=== PATIENT | female | born 1985 | race Caucasian/White ===

== ENCOUNTER 2017-08-29 23:22 | Inpatient (IN) | payer MEDICAID, OTHER ==
[~2017-08-29] VITALS: Ht 172.7 cm; Wt 75.7 kg
[~2017-08-29 23:22] MED LIST: ASPI81TA81; FERRTAB2 PO; PREN1CAP7 PO
[2017-08-30] VITALS (33 sets, daily range): BP systolic 102–141; BP diastolic 52–84; PULSE 63–99; RESP 14–18; TEMP 98–98.9; O2SAT 100
[2017-08-30] MEDS ORDERED: LACTATED RINGER'S 1000 ML INJ 1,000 ML IV PRN (00:07)
--- NOTE | 2017-08-30 00:07 | PD ---
HPI Chief Complaint 40 weeks and 4 days Uterine contractions. Travel History International Travel<30 Days: No Contact w/Intl Traveler<30Days: No Known Affected Area: No History of Present Illness HPI Pt is a 32 yo at 40 weeks and 4 days. care with [facility]. EDC 08-25-2017. Pt had been scheduled for IOL here 08-31-2017. Pt reports contractions all day, now every 1-2 minutes. No vaginal leaking or vaginal bleeding. Pt is GBS positive. Weeks Gestation: 40 Para: 0 : 2 History Past Medical History Narrative Medical Recurrent miscarriages Obstetric History Obstetric History recurrent miscarriages. 1st trimester #5 Past Surgical History Surgical History: No Previous Surgery Family History Family History: Negative Social History Alcohol Use: No Tobacco Use: Yes (1/2 PPD) Substance Abuse: No Allergies-Medications (Allergen,Severity, Reaction): Coded Allergies: Sulfa (Sulfonamide Antibiotics) (Verified Allergy, Severe, Edema, 08/30/17 ) Home Meds Active Scripts Multi-Vit/Iron-Folic [id number] C (Ferralet) 90-1-0.012-120 mg Tab, 1 CAPLET PO DAILY for 30 Days, #30 CAPLET 3 Refills Prov:Bethany Grande CNM FOOD SERVICE REPRESENTATIVE 06/30/17 W/O Vit A W/ Fe Fumar (Citranatal [place]) 27-1-260 Mg Cap, 1 CAP PO DAILY for Nutritional Supplement, #90 CAP 90 Refills Prov:Carl Arevalo MD 01/12/17 W/O Vit A W/ Fe Carbo Pack (Citranatal 90 Dha Pack) 90-1 & 300 Mg Pack Prov:Carl Arevalo MD 12/29/16 Reported Medications Aspirin (Aspir-81) 81 Mg Tabdr 03/24/17 Review of Systems Except as stated in HPI: all other systems reviewed are Neg Physical Exam Narrative GENERAL: Well-nourished, well-developed patient. SKIN: Warm and dry. HEAD: Normocephalic and atraumatic. EYES: No scleral icterus. No injection or drainage. ENT: No nasal drainage noted. Mucous membranes pink. Airway patent. NECK: Supple, trachea midline. No JVD. CARDIOVASCULAR: Regular rate and rhythm without murmurs, gallops, or rubs. RESPIRATORY: Breath sounds equal bilaterally. No accessory muscle use. BREASTS: Bilateral exam showed no masses , no retractions, no nipple discharge. ABDOMEN/GI: Abdomen soft, non-tender, bowel sounds present, no rebound, no guarding Gravid to [40] weeks size Fundal Height: [38] GENITOURINARY: External Genitalia: intact and normal in appearance BUS glands: [wnl] Cervix: [soft] Dilatation: [4cm] Effacement: [90%] Station: [-1] Presentation: [vertex] Membranes: [intact] Uterine Contractions: [1-2] FHT's: Category: [1] Baseline: [130s] Reactive: [-] Variability: [good] Decels: [none] EXTREMITIES: No cyanosis or edema. BACK: Nontender without obvious deformity. No CVA tenderness. NEUROLOGICAL: Awake and alert. Motor and sensory grossly within normal limits. Five out of 5 muscle strength in all muscle groups. Normal speech. Data Data Vital Signs Reviewed: Yes Group B Strep: Positive MDM Plan 32yo at 40 weeks and 4 days . GBS positive Presents in labor Will start prophylactic antibiotics. Diagnosis Diagnosis: Primary Impression: Postmaturity , 40-42 weeks gestation Additional Impression: Admitted to labor and delivery Moise Hay MD Aug 30, 2017 00:06
[2017-08-30] MEDS ORDERED: MINERAL OIL 10 ML VIAL TOPICAL PRN (00:15)
[2017-08-30] MEDS ORDERED: OXYTOCIN 30 UNITS-500ML PREMIX 500 ML IV ONE (00:15)
[2017-08-30] MEDS ORDERED: CITRIC ACID-SODIUM CITRATE LIQ 30 ML UDC PO SCH (00:15)
[2017-08-30] MEDS ORDERED: LIDOCAINE HCL 1% 50 ML VIAL INFIL PRN (00:15)
[2017-08-30] MEDS ORDERED: PENICILLIN G POTASSIUM INJ 5,000,000 UNITS in SODIUM CHLORIDE 0.9% INJ 100 ML IV ONE (00:15)
[2017-08-30] MEDS ORDERED: SODIUM CHLORID 0.9% 500 ML INJ 500 ML IV PRN (00:15)
[2017-08-30] MEDS ORDERED: LIDOCAINE HCL 1% 50 ML VIAL I-DERMAL PRN (00:15)
[2017-08-30] MEDS: LACTATED RINGER'S 1000 ML INJ 1,000 ML IV SCH ×4 (00:26→12:17)
[2017-08-30] MEDS ORDERED: SODIUM CHLOR 0.9% 1000 ML INJ 1,000 ML IV PRN (01:00)
[2017-08-30 01:19] LABS: AUTOMATED NEUTROPHIL # 11.4 TH/MM3 (1.8-7.7); BASOPHIL % 0.2 % (0.0-2.0); EOSINOPHIL % 0.2 % (0.0-4.0); HEMATOCRIT 37.4 % (35.0-46.0); HEMO FLAGS DIFF FINAL; LYMPH % 9.6 % (9.0-44.0); LYMPHOCYTE # 1.3 TH/MM3 (1.0-4.8); MEAN CELL VOLUME 90.1 FL (80.0-100.0); MEAN CORPUSCULAR HEMOGLOBIN 31.4 PG (27.0-34.0); MEAN CORPUSCULAR HGB CONC 34.9 % (32.0-36.0); MONO % 4.2 % (0.0-8.0); NEUT % 85.8 % (16.0-70.0); PLATELET COUNT 239 TH/MM3 (150-450); RED BLOOD COUNT 4.15 MIL/MM3 (4.00-5.30); RED CELL DISTRIBUTION WIDTH 13.7 % (11.6-17.2); WHITE BLOOD COUNT 13.3 TH/MM3 (4.0-11.0)
[2017-08-30 01:58] LABS: BACTERIA, URINE RARE /hpf; BLOOD, URINE SMALL (NEG); COMMENT (UR) CULT NOT INDICATED; CULTURE IF INDICATED CULT NOT INDICATED; GLUCOSE,URINE NEG (NEG); KETONE, URINE 40 mg/dL (NEG); MUCUS URINE FEW /lpf (OCC); NITRITE,URINE NEG (NEG); PH, URINE 6.5 (5.0-8.5); SQUAMOUS EPITHELIAL CELL URINE 9 /hpf (0-5); URINE COLOR LIGHT-YELLOW (YELLW/STRAW)
--- NOTE | 2017-08-30 03:06 | HHI.HP ---
HPI Chief Complaint 40 weeks and 34 days Contractions 1 day Travel History International Travel<30 Days: No Contact w/Intl Traveler<30Days: No Known Affected Area: No History of Present Illness HPI Pt is a 32 yo at 40 weeks and 4 days. care with [facility]. EDC 08-25-2017. Pt had been scheduled for IOL here 08-31-2017. Pt reports contractions all day, now every 1-2 minutes. No vaginal leaking or vaginal bleeding. Pt is GBS positive. Pt was examined and noted to be 4cm dilated with regular contractions, No vaginal leaking or bleeding. Weeks Gestation: 40 Para: 0 : 6 History Past Medical History Narrative Medical Remote h/o HSV. Never had outbreak and never been on prophylaxis. No genital lesions noted Obstetric History Obstetric History x5 first trimester miscarriages Past Surgical History Surgical History: No Previous Surgery Family History Family History: Negative Social History Alcohol Use: No Tobacco Use: Yes (1/2 PPd smoker) Substance Abuse: No Allergies-Medications (Allergen,Severity, Reaction): Coded Allergies: Sulfa (Sulfonamide Antibiotics) (Verified Allergy, Severe, Edema, 08/30/17 ) Home Meds Active Scripts Multi-Vit/Iron-Folic [id number] C (Ferralet) 90-1-0.012-120 mg Tab, 1 CAPLET PO DAILY for 30 Days, #30 CAPLET 3 Refills Prov:Bethany Grande CNM KILN PULLER 06/30/17 W/O Vit A W/ Fe Fumar (Citranatal [place]) 27-1-260 Mg Cap, 1 CAP PO DAILY for Nutritional Supplement, #90 CAP 90 Refills Prov:Carl Arevalo MD 01/12/17 W/O Vit A W/ Fe Carbo Pack (Citranatal 90 Dha Pack) 90-1 & 300 Mg Pack Prov:Cral Arevalo MD 12/29/16 Reported Medications Aspirin (Aspir-81) 81 Mg Tabdr 03/24/17 Review of Systems Except as stated in HPI: all other systems reviewed are Neg Physical Exam Narrative GENERAL: Well-nourished, well-developed patient. SKIN: Warm and dry. HEAD: Normocephalic and atraumatic. EYES: No scleral icterus. No injection or drainage. ENT: No nasal drainage noted. Mucous membranes pink. Airway patent. NECK: Supple, trachea midline. No JVD. CARDIOVASCULAR: Regular rate and rhythm without murmurs, gallops, or rubs. RESPIRATORY: Breath sounds equal bilaterally. No accessory muscle use. BREASTS: Bilateral exam showed no masses , no retractions, no nipple discharge. ABDOMEN/GI: Abdomen soft, non-tender, bowel sounds present, no rebound, no guarding Gravid to [40] weeks size Fundal Height: [38] GENITOURINARY: External Genitalia: intact and normal in appearance BUS glands: [wnl] Cervix: [soft] Dilatation: [4cm] Effacement: [90%] Station: [-1] Presentation: [-] Membranes: [intact] Uterine Contractions: [1-2 minutes] FHT's: Category: [1] Baseline: [130s] Reactive: [-] Variability: [Y] Decels: [none] EXTREMITIES: No cyanosis or edema. BACK: Nontender without obvious deformity. No CVA tenderness. NEUROLOGICAL: Awake and alert. Motor and sensory grossly within normal limits. Five out of 5 muscle strength in all muscle groups. Normal speech. Caprini VTE Risk Assessment Caprini VTE Risk Assessment: No/Low Risk (score <= 1) Caprini Risk Assessment Model Point Value = 1 Point Value = 2 Point Value = 3 Point Value = 5 Age 41-60 Minor surgery BMI > 25 kg/m2 Swollen legs Varicose veins or History of unexplained or recurrent spontaneous Oral contraceptives or hormone replacement Sepsis (< 1 month) Serious lung disease, including pneumonia (< 1 month) Abnormal pulmonary function Acute myocardial infarction Congestive heart failure (< 1 month) History of inflammatory bowel disease Medical patient at bed rest Age 61-74 Arthroscopic surgery Major open surgery (> 45 min) Laparoscopic surgery (> 45 min) Malignancy Confined to bed (> 72 hours) Immobilizing plaster cast Central venous access Age >= 75 History of VTE Family history of VTE Factor V Leiden Prothrombin [id number] Lupus anticoagulant Anticardiolipin antibodies Elevated serum homocysteine Heparin-induced thrombocytopenia Other congenital or acquired thrombophilia Stroke (< 1 month) Elective arthroplasty Hip, pelvis, or leg fracture Acute spinal cord injury (< 1 month) Prophylaxis Regimen Total Risk Factor Score Risk Level Prophylaxis Regimen 0-1 Low Early ambulation 2 Moderate Order ONE of the following: *Sequential Compression Device (SCD) *Heparin 5000 units SQ BID 3-4 Higher Order ONE of the following medications: *Heparin 5000 units SQ TID *Enoxaparin/Lovenox 40 mg SQ daily (WT < 150 kg, CrCl > 30 mL/min) *Enoxaparin/Lovenox 30 mg SQ daily (WT < 150 kg, CrCl > 10-29 mL/min) *Enoxaparin/Lovenox 30 mg SQ BID (WT < 150 kg, CrCl > 30 mL/min) AND/OR *Sequential Compression Device (SCD) 5 or more Highest Order ONE of the following medications: *Heparin 5000 units SQ TID (Preferred with Epidurals) *Enoxaparin/Lovenox 40 mg SQ daily (WT < 150 kg, CrCl > 30 mL/min) *Enoxaparin/Lovenox 30 mg SQ daily (WT < 150 kg, CrCl > 10-29 mL/min) *Enoxaparin/Lovenox 30 mg SQ BID (WT < 150 kg, CrCl > 30 mL/min) AND *Sequential Compression Device (SCD) Data Data Vital Signs Reviewed: Yes Orders Orders Admit To Inpatient (08/30/17 ) Code Status (08/30/17 00:07) Vital Signs (Adult) .Per protocol (08/30/17 00:07) Activity Oob Ad Giovanna (08/30/17 00:07) Heart (08/30/17 00:07) Amnioinfusion (08/30/17 00:07) Urinary Catheter Management .ONCE (08/30/17 00:07) Diet Liquid (08/30/17 Breakfast) Lactated Ringer's 1000 Ml Inj (Lr 1000 M (08/30/17 00:07) Lactated Ringer's 1000 Ml Inj (Lr 1000 M (08/30/17 00:07) Sodium Chlorid 0.9% 500 Ml Inj (Ns 500 M (08/30/17 00:15) Sodium Chlor 0.9% 1000 Ml Inj (Ns 1000 M (08/30/17 01:00) Lidocaine 1% Inj (50 Ml) (Xylocaine 1% I (08/30/17 00:15) Citric Acid-Sodium Citrate Liq (Bicitra (08/30/17 00:15) Fentanyl Inj (Fentanyl Inj) (08/30/17 00:15) Fentanyl Inj (Fentanyl Inj) (08/30/17 00:15) Penicillin G Potassium Inj (Pfizerpen-G (08/30/17 00:15) Penicillin G Potassium Inj (Pfizerpen-G (08/30/17 04:15) Complete Blood Count With Diff (08/30/17 00:07) Hold Clot (08/30/17 00:07) Abo/Rh Blood Type (08/30/17 00:07) Urinalysis - C+S If Indicated (08/30/17 00:07) Drug Screen, Random Urine (08/30/17 00:07) Resp Oxygen Non Rebreathe Mask (08/30/17 ) ^ Epidural / Intrathecal Infus (08/30/17 00:07) Oxytocin 30 Units-500ml Premix (Pitocin (08/30/17 00:15) Lidocaine 1% Inj (50 Ml) (Xylocaine 1% I (08/30/17 00:15) Light Mineral Oil (Muri-Lube Oil) (08/30/17 00:15) Inpatient Certification (08/30/17 ) Ob (2e) Additional Admit Info (08/30/17 00:10) Group B Strep: Positive Labs Laboratory Tests Test 08/30/17 00:45 08/30/17 01:41 White Blood Count 13.3 Red Blood Count 4.15 Hemoglobin 13.0 Hematocrit 37.4 Mean Corpuscular Volume 90.1 Mean Corpuscular Hemoglobin 31.4 Mean Corpuscular Hemoglobin Concent 34.9 Red Cell Distribution Width 13.7 Platelet Count 239 Mean Platelet Volume 8.4 Neutrophils (%) (Auto) 85.8 Lymphocytes (%) (Auto) 9.6 Monocytes (%) (Auto) 4.2 Eosinophils (%) (Auto) 0.2 Basophils (%) (Auto) 0.2 Neutrophils # (Auto) 11.4 Lymphocytes # (Auto) 1.3 Monocytes # (Auto) 0.6 Eosinophils # (Auto) 0.0 Basophils # (Auto) 0.0 CBC Comment DIFF FINAL Differential Comment Urine Color LIGHT-YELLOW Urine Turbidity HAZY Urine pH 6.5 Urine Specific [place] 1.005 Urine Protein NEG Urine Glucose (UA) NEG Urine Ketones 40 Urine Occult Blood SMALL Urine Nitrite NEG Urine Bilirubin NEG Urine Urobilinogen LESS THAN 2.0 Urine Leukocyte Esterase MOD Urine RBC 1 Urine WBC 4 Urine Squamous Epithelial Cells 9 Urine Bacteria RARE Urine Mucus FEW Microscopic Urinalysis Comment CULT NOT INDICATED Urine Opiates Screen NEG Urine Barbiturates Screen NEG Urine Amphetamines Screen NEG Urine Benzodiazepines Screen NEG Urine Cocaine Screen NEG Urine Cannabinoids Screen NEG Assessment/Plan Problem List: (1) Postmaturity , 40-42 weeks gestation ICD Codes: O48.0 - Post-term Status: Acute (2) Admitted to labor and delivery ICD Codes: Z78.9 - Other specified health status Status: Acute Assessment and Plan 32 yo at 40 weeks and 4 days presenting in labor. GBS positive, and antibiotic prophylaxis initiated. Pt has h/o remote HSV and no prophylaxis. No genital lesions noted. Expectant. Moise Hay MD Aug 30, 2017 03:06
[2017-08-30] MEDS: PENICILLIN G POTASSIUM INJ 2,500,000 UNITS in SODIUM CHLORIDE 0.9% INJ 100 ML IV SCH ×2 (04:25→08:45)
[2017-08-30] MEDS ORDERED: OXYTOCIN 30 UNITS/NS 500ML PREMIX IV SCH (04:45)
[2017-08-30] MEDS ORDERED: fentaNYL 2MCG-BUPIV 0.125% INJ 100 ML ONE (05:47)
[2017-08-30] MEDS ORDERED: ePHEDrine/NS 25 MG/5 ML SYRINGE ONE (05:48)
[2017-08-30] MEDS ORDERED: DO NOT ADMINISTER ANTICOAGULANTS PRN (06:30)
[2017-08-30] MEDS ORDERED: ePHEDrine/NS 25 MG/5 ML SYRINGE IV PUSH PRN (06:30)
[2017-08-30] MEDS ORDERED: NO SYSTEM NARCOTICS PRN (06:30)
[2017-08-30] MEDS ORDERED: fentaNYL 2MCG-BUPIV 0.125% 100 ML EPIDURAL SCH (06:30)
--- NOTE | 2017-08-30 08:34 | PD.LABORPN ---
Subjective Subjective Comfortable post epidural. Objective Vital Signs Vital Signs Date Time Temp Pulse Resp B/P (MAP) Pulse Ox O2 Delivery O2 Flow Rate FiO2 08/30/17 07:30 78 102/57 (72) 08/30/17 07:15 63 103/52 (69) 08/30/17 07:00 75 114/62 (79) 08/30/17 06:45 83 113/62 (79) 08/30/17 06:40 79 100 08/30/17 06:35 69 100 08/30/17 06:30 71 100 08/30/17 06:25 68 08/30/17 06:25 100 08/30/17 06:25 75 122/67 (85) 08/30/17 06:20 83 126/67 (86) 100 08/30/17 06:20 81 08/30/17 06:15 100 08/30/17 06:15 75 08/30/17 06:15 74 123/60 (81) 08/30/17 06:14 18 08/30/17 06:10 100 08/30/17 06:10 73 08/30/17 06:10 74 123/76 (92) 08/30/17 06:05 75 130/77 (94) 08/30/17 06:00 83 134/84 (101) 08/30/17 05:58 78 119/81 (94) 08/30/17 04:03 98.0 08/30/17 04:02 18 08/30/17 04:02 79 121/76 (91) Objective Pelvic Exam: Cervix: [soft] Dilatation: [8cm] Effacement: [90%] Station: [-1] Presentation: [vertex] Membranes: [Ruptured] AROM done with AmniHook.Clear, Uterine Contractions: [2 minutes] Pitocin at 8mu/min FHT's: Category: [1] Baseline: [120s] Reactive: [-] Variability: [good] Decels: [none] Weeks Gestation: 40 Pt started active labor?: Yes Active labor start date: Aug 29, 2017 Active labor start time: 21:00 Medical induction of labor?: No Artificial ROM date: Aug 30, 2017 Artifical ROM time: 08:24 Assessment/Plan Problem List: (1) Postmaturity , 40-42 weeks gestation ICD Codes: O48.0 - Post-term Status: Acute (2) Admitted to labor and delivery ICD Codes: Z78.9 - Other specified health status Status: Acute Assessment and Plan 32yo at 40 weeks and 5days. maternal status reassuring. Progressing well. On antibiotics for GBS prophylaxis. AROM done, clear. Continue Pitocin per protocol. Moise Hay MD Aug 30, 2017 08:34
[2017-08-30] MEDS ORDERED: ONDANSETRON ODT 4 MG TAB PO PRN (12:00)
[2017-08-30] MEDS ORDERED: SODIUM CHLORIDE 0.9% FLUSH 10 ML FLUSH IV FLUSH PRN (12:00)
[2017-08-30] MEDS ORDERED: OXYTOCIN 30 UNITS-500ML PREMIX 500 ML IV SCH (12:00)
[2017-08-30] MEDS ORDERED: oxyCODONE/ACETAMINOPHEN 5 MG/325 MG TAB PO PRN ×2 (12:00)
[2017-08-30] MEDS ORDERED: BENZOCAINE 20% TOPICAL SPRAY 60 ML CAN TOPICAL PRN (12:00)
[2017-08-30] MEDS ORDERED: WITCH HAZEL 50%/GLYCERIN 12.5% 40 PAD JAR TOPICAL PRN (12:00)
[2017-08-30] MEDS ORDERED: ZOLPIDEM TARTRATE 5 MG TAB PO PRN (12:00)
[2017-08-30] MEDS ORDERED: ALUMINUM/MAGNESIUM/SIMETH 30 ML CUP PO PRN (12:00)
[2017-08-30] MEDS ORDERED: ACETAMINOPHEN 325 MG TAB PO PRN (12:00)
[2017-08-30] MEDS ORDERED: DOCUSATE SODIUM 50 MG/SENNA 8.6 MG TAB PO PRN (12:00)
[2017-08-30] MEDS: IBUPROFEN 800 MG TAB PO PRN ×2 (12:17→19:42)
--- NOTE | 2017-08-30 12:18 | PD.OB.DELI ---
Weeks gestation: 40 Pt started active labor?: Yes Active labor start date: Aug 29, 2017 Active labor start time: 21:00 Medical induction of labor?: No Artificial ROM date: Aug 30, 2017 Artifical ROM time: 08:24 Anesthesia: Epidural Episiotomy: None Vaginal Delivery: Normal Presentation: Occiput anterior Nuchal Cord: None Delayed cord clamping (45 sec): Yes : Female Delivery date: Aug 30, 2017 Delivery time: 11:34 One Minute : 8 Five Minute : 9 Weight: 3010g, 6 lb. 10.2 oz. Placenta: Manual removal, Intact, 3 vessel cord Laceration: Vaginal laceration (bilateral periurethral), Perineal laceration, 1 deg Repair: Vicryl interrupted (one figure of eight suture for each first degree laceration x3) Estimated blood loss: 100ml Additional Information Head was delivered by maternal effort. No nuchal cord noted. Uncomplicated delivery of baby. During the third stage of labor, umbilical cord ripped and placenta was manually extracted. First-degree bilateral superior vaginal/ periurethral and a perineal laceration were repaired with 3-0 Vicryl figure-of- eight sutures 3. Supervised by Dr. Salinas. Mor Pacheco MD R2 Aug 30, 2017 12:18
[2017-08-30] MEDS ORDERED: DIPHTH/TETANUS/ACEL PERTUSSIS (BOOSTER) 0.5 ML VIAL/PFS IM ONE (16:00)
[2017-08-30] MEDS ORDERED: MEASLES, MUMPS, RUBELLA VACCINE 0.5 ML VIAL SQ ONE (16:00)
[2017-08-30] MEDS: SODIUM CHLORIDE 0.9% FLUSH 10 ML FLUSH IV FLUSH SCH (19:43)
[2017-08-31] MEDS: IBUPROFEN 800 MG TAB PO PRN ×2 (03:52→14:23)
[2017-08-31 07:41] VITALS: BP 126/70; PULSE 64; RESP 18; TEMP 98; O2SAT 98
--- NOTE | 2017-08-31 08:35 | HHI.OB ---
Subjective Post Day: 1 Remarks Patient is a 32 yo who is day # 1 s/p . AFVSS overnight. Decreased lochia. Denies dysuria. No breast tenderness. She is feeding the baby via breast. Appetite good. No nausea or vomiting. Passing flatus. Ambulating well. Denies calf pain or shortness of breath. Otherwise, she is doing well this morning and has no other concerns. care with [facility]. Remote h/o HSV. Never had outbreak and never been on prophylaxis. No genital lesions noted on initial exam. Objective Vitals/I&O Vital Signs Date Time Temp Pulse Resp B/P (MAP) Pulse Ox O2 Delivery O2 Flow Rate FiO2 08/31/17 07:41 98.0 64 18 98 08/31/17 07:41 126/70 (88) 08/30/17 19:32 98.7 08/30/17 19:31 85 107/65 (79) 08/30/17 19:31 14 08/30/17 14:10 98.9 76 18 131/74 (93) 08/30/17 12:55 18 08/30/17 12:45 77 125/64 (84) 08/30/17 12:39 18 08/30/17 12:30 82 121/75 (90) 08/30/17 12:19 18 08/30/17 12:15 18 08/30/17 12:15 87 141/77 (98) 08/30/17 12:00 85 131/78 (95) 08/30/17 11:57 87 126/76 (93) 08/30/17 10:00 77 124/74 (91) 08/30/17 09:30 89 116/64 (81) 08/30/17 09:22 98.4 18 08/30/17 09:00 99 126/70 (88) Objective Remarks GENERAL: Well-nourished, well-developed patient. CARDIOVASCULAR: Regular rate and rhythm without murmurs, gallops, or rubs. RESPIRATORY: Breath sounds equal bilaterally. No accessory muscle use. ABDOMEN/GI: Abdomen soft, non-tender. Fundus: Firm, non-tender at umbilicus. GENITOURINARY: Light to moderate bleeding. EXTREMITIES: No cyanosis or edema, non-tender, without signs of DVT. Medications and IVs Current Medications Medications (Trade) Dose Ordered Sig/Nael Route Start Time Stop Time Status Last Admin Oxytocin 500 ml @ 0 mls/hr TITRATE IV 08/30/17 04:45 08/30/17 05:16 Fentanyl/ Bupivacaine HCl 100 ml @ 0 mls/hr TITRATE EPIDURAL 08/30/17 06:30 08/30/17 06:24 (NS Flush) 2 ml BID IV FLUSH 08/30/17 21:00 08/30/17 19:43 (NS Flush) 2 ml UNSCH PRN IV FLUSH 08/30/17 12:00 (Tylenol) 650 mg Q4H PRN PO 08/30/17 12:00 (Motrin) 800 mg Q8H PRN PO 08/30/17 12:00 08/31/17 03:52 (Percocet 5-325 Mg) 1 tab Q4H PRN PO 08/30/17 12:00 (Percocet 5-325 Mg) 2 tab Q4H PRN PO 08/30/17 12:00 (Americaine 20% Top Spr) 1 spray Q4H PRN TOPICAL 08/30/17 12:00 08/30/17 14:28 (Tucks Pads) 1 applic QID PRN TOPICAL 08/30/17 12:00 08/30/17 14:28 (Jesica-Colace) 2 tab Q12H PRN PO 08/30/17 12:00 (Ambien) 5 mg HS PRN PO 08/30/17 12:00 (Mag-Al Plus Susp Liq) 15 ml Q8H PRN PO 08/30/17 12:00 (Zofran Odt) 4 mg Q6H PRN PO 08/30/17 12:00 Assessment/Plan Problem List: (1) Postmaturity , 40-42 weeks gestation ICD Codes: O48.0 - Post-term Status: Acute (2) Admitted to labor and delivery ICD Codes: Z78.9 - Other specified health status Status: Acute Assessment and Plan 32 y/o female who is PPD # 1 s/p . -Continue routine care. GBS+, Hx HSV remote, no active lesions. -Acetaminophen Motrin PRN pain. -Encouraged OOB. Advised pelvic rest for 6 wks. -Re: ctrl, she would like to think about it. -Anticipate discharge tomorrow. Kaya Benavidez Dr., MD R2 Aug 31, 2017 08:35
[2017-08-31] MEDS: SODIUM CHLORIDE 0.9% FLUSH 10 ML FLUSH IV FLUSH SCH (18:59)
[2017-08-31 19:55] VITALS: BP 132/88; PULSE 63; RESP 18; TEMP 98
[2017-09-01] MEDS: IBUPROFEN 800 MG TAB PO PRN (05:00)
[2017-09-01 08:00] VITALS: BP 127/85; PULSE 66; RESP 16; TEMP 97.7; O2SAT 99
--- NOTE | 2017-09-01 08:30 | HHI.OB ---
Subjective Post Day: 2 Remarks day #2. AFVSS overnight. Pain trial. Decreased lochia. Denies dysuria. No breast tenderness. She is feeding the baby via breast. Appetite good. No nausea or vomiting. Positive flatus. No bowel movement. Ambulating well. Denies calf pain, shortness of breath, or cough. Otherwise, she is doing well this morning and has no other complaints. Objective Vitals/I&O Vital Signs Date Time Temp Pulse Resp B/P (MAP) Pulse Ox O2 Delivery O2 Flow Rate FiO2 08/31/17 19:55 98.0 08/31/17 19:55 63 18 132/88 (103) Objective Remarks GENERAL: Well-nourished, well-developed patient. CARDIOVASCULAR: Regular rate and rhythm without murmurs, gallops, or rubs. RESPIRATORY: Breath sounds equal bilaterally. No accessory muscle use. ABDOMEN/GI: Abdomen soft, slightly tender in the LOWER abdomen. Fundus: Firm, non-tender at umbilicus. GENITOURINARY: Light to moderate bleeding. EXTREMITIES: No cyanosis or edema, non-tender, without signs of DVT. Medications and IVs Current Medications Medications (Trade) Dose Ordered Sig/Nael Route Start Time Stop Time Status Last Admin Oxytocin 500 ml @ 0 mls/hr TITRATE IV 08/30/17 04:45 08/30/17 05:16 Fentanyl/ Bupivacaine HCl 100 ml @ 0 mls/hr TITRATE EPIDURAL 08/30/17 06:30 08/30/17 06:24 (NS Flush) 2 ml BID IV FLUSH 08/30/17 21:00 08/30/17 19:43 (NS Flush) 2 ml UNSCH PRN IV FLUSH 08/30/17 12:00 (Tylenol) 650 mg Q4H PRN PO 08/30/17 12:00 (Motrin) 800 mg Q8H PRN PO 08/30/17 12:00 09/01/17 05:00 (Percocet 5-325 Mg) 1 tab Q4H PRN PO 08/30/17 12:00 (Percocet 5-325 Mg) 2 tab Q4H PRN PO 08/30/17 12:00 (Americaine 20% Top Spr) 1 spray Q4H PRN TOPICAL 08/30/17 12:00 08/30/17 14:28 (Tucks Pads) 1 applic QID PRN TOPICAL 08/30/17 12:00 08/30/17 14:28 (Jesica-Colace) 2 tab Q12H PRN PO 08/30/17 12:00 (Ambien) 5 mg HS PRN PO 08/30/17 12:00 (Mag-Al Plus Susp Liq) 15 ml Q8H PRN PO 08/30/17 12:00 (Zofran Odt) 4 mg Q6H PRN PO 08/30/17 12:00 Assessment/Plan Problem List: (1) Postmaturity , 40-42 weeks gestation ICD Codes: O48.0 - Post-term Status: Acute (2) Admitted to labor and delivery ICD Codes: Z78.9 - Other specified health status Status: Acute Assessment and Plan 32 y/o female who is PPD # 1 s/p . -Continue routine care. GBS+, Hx HSV remote, no active lesions. -Acetaminophen Motrin PRN pain. -Encouraged OOB. Advised pelvic rest for 6 wks. -Anticipate discharge today. Renee Savage Dr., MD R1 Sep 01, 2017 08:30
[2017-09-01] MEDS ORDERED: IBUP1TAB7 PO (09:24)
[2017-09-01] MEDS ORDERED: PERI PO (09:24)
--- NOTE | 2017-09-01 09:26 | HHI.DCPOC ---
Discharge Care Plan Diagnosis: (1) Postmaturity , 40-42 weeks gestation Report Symptoms to Your Doctor -Temperature above 100.5 degrees -Redness, of incision or excessive or foul smelling drainage -Unusual pain or calf pain -Increased vaginal bleeding -Painful or difficulty urinating -Feelings of extreme sadness or anxiety after 2 weeks Goals to Promote Your Health * To prevent worsening of your condition and complications * To maintain your health at the optimal level * Avoid inserting anything into the vagina for 6 weeks Directions to Meet Your Goals Take your medications as prescribed Follow your dietary instruction Follow activity as directed Ensure plenty of rest for recovery Drink fluids for hydration Keep your appointments as scheduled Take your immunizations and boosters as scheduled If your symptoms worsen call your PCP, if no PCP go to Urgent Care Center or Emergency Room Smoking is Dangerous to Your Health. Avoid second hand smoke Call the 24-hour crisis hotline for domestic abuse at Renee Chirinos MD R1 Sep 01, 2017 09:26
== END 2017-09-01 13:30 | disposition home or self-care (01) | DRG 767 ==
LOC: HOBED 23:22 → H2EB 08-30 00:12 → H1EA 08-30 13:57
PROVIDERS: ADMIT Obstetrics & Gynecology; ATTEND Obstetrics & Gynecology
PROC: 10E0XZZ Delivery of Products of Conception, External Approach (ICD-10-PCS; principal; 2017-08-30)
PROC: 10D17Z9 Manual Extraction of Products of Conception, Retained, Via Natural or Artificial Opening (ICD-10-PCS; 2017-08-30)
PROC: 10907ZC Drainage of Amniotic Fluid, Therapeutic from Products of Conception, Via Natural or Artificial Opening (ICD-10-PCS; 2017-08-30)
PROC: 0HQ9XZZ Repair Perineum Skin, External Approach (ICD-10-PCS; 2017-08-30)
PROC: 3E0R3BZ Introduction of Anesthetic Agent into Spinal Canal, Percutaneous Approach (ICD-10-PCS; 2017-08-30)
PROC: 00HU33Z Insertion of Infusion Device into Spinal Canal, Percutaneous Approach (ICD-10-PCS; 2017-08-30)
DX: O99.824 Streptococcus B carrier state complicating childbirth (principal); O99.334 Smoking (tobacco) complicating childbirth; F17.210 Nicotine dependence, cigarettes, uncomplicated; O48.0 Post-term pregnancy; O69.89X0 Labor and delivery complicated by other cord complications, not applicable or unspecified; O70.0 First degree perineal laceration during delivery; O71.82 Other specified trauma to perineum and vulva; Z87.898 Personal history of other specified conditions; Z37.0 Single live birth; Z3A.40 40 weeks gestation of pregnancy
CPT/HCPCS: 59025; 80307; 81001; 85025; 85461; 86850; 86900; 86901; 90384; 90715; J2540; J2590; J2790; J7120